=== PATIENT | female | born 1985 | race Caucasian/White ===

== ENCOUNTER 2017-04-25 17:33 | Emergency (ER) | payer OTHER ==
[2017-04-25 17:56] VITALS: BP 146/85; PULSE 74; TEMP 99.3; BMI 35.6
--- NOTE | 2017-04-25 18:55 | PDOC ---
History of Present Illness - General Chief Complaint: Back Pain Stated Complaint: RIGHT SIDE PAIN AND BURNING Time Seen by Provider: 04/25/17 18:24 History Source: Patient Exam Limitations: No Limitations - History of Present Illness Initial Comments: 04/25/17 18:51 31 yr female with right mid back pain for 2 weeks worse when standing at the sink doing dishes, feels a stabbing burning sensation. Pt admits to urianry burning no discharge, LMP 04/05/17 . no abd pain or diarrhea no fever or chills. No PMHX. no allergies. Occurred: reports: other (2 weeks ) Severity: reports: moderate Pain Location: reports: back (right mid back ) Loss of Consciousness: no loss of consciousness Past History - Past Medical History Allergies/Adverse Reactions: Allergies Allergy/AdvReac Type Severity Reaction Status Date / Time No Known Allergies Allergy Verified 04/25/17 17:55 Home Medications: Ambulatory Orders Cyclobenzaprine HCl [Flexeril -] 5 mg PO TID PRN #21 tablet 04/25/17 Naproxen [Naprosyn -] 500 mg PO BID #14 tablet 04/25/17 Asthma: No Cancer: No Cardiac Disorders: No Diabetes: No HTN: No Seizures: No Thyroid Disease: No - Reproductive History (#): 1 Para: 0 - Immunization History Immunization Up to Date: Yes - Suicide/Smoking/Psychosocial Hx Smoking History: Never smoked Have you smoked in the past 12 months: No Information on smoking cessation initiated: No Hx Alcohol Use: No Drug/Substance Use Hx: No Substance Use Type: None Hx Substance Use Treatment: No Trauma Specific PMHX - Complaint Specific PMHX Arthritis: No Back Injury: No Neck Injury: No Hx Sacro Iliac Joint Dysfunction: No Review of Systems - Review of Systems Able to Perform ROS?: Yes Is the patient limited [place] proficient: No Constitutional: No: Symptoms Reported HEENTM: No: Symptoms Reported Respiratory: No: Symptoms reported Cardiac (ROS): No: Symptoms Reported ABD/GI: No: Symptoms Reported, Other Musculoskeletal: Yes: See HPI, Back Pain (right mid back ) *Physical Exam - Vital Signs Last Vital Signs Temp Pulse Resp BP Pulse Ox 99.3 F 74 18 146/85 100 04/25/17 17:35 04/25/17 17:35 04/25/17 17:35 04/25/17 17:35 04/25/17 17:35 - Physical Exam General Appearance: Yes: Nourished, Appropriately Dressed HEENT: positive: EOMI, LUD[place], Normal ENT Inspection, TMs Normal, Pharynx Normal Neck: positive: Supple. negative: Tender Respiratory/Chest: positive: Lungs Clear, Normal Breath Sounds. negative: Chest Tender Cardiovascular: positive: Regular Rhythm, Regular Rate Gastrointestinal/Abdominal: positive: Normal Bowel Sounds, Soft. negative: Tender Musculoskeletal: positive: Normal Inspection, Muscle Spasm (right mid back no rash , no swelling mild tenderness to palpation, worse with deep breath). negative: CVA Tenderness, CVA Tenderness (R), CVA Tenderness (L), Decreased Range of Motion Medical Decision Making - Medical Decision Making 04/25/17 18:54 cc: 2 weeks back pain denies trauma no fever or chills no recent travel or surgery no PMHX will r/o UTI, kidney stone, muscle spasm pt is stable no hypoxia no evidence of tachycardia low grade fever. neg CVAT pt felt much better after the toradol injection. pt has FROM and feels better would like to go home strict follow up discussed with the patient. all questions asked and answered. 04/29/17 15:43 04/29/17 15:44 *DC/Admit/Observation/Transfer Diagnosis at time of Disposition: Muscle spasm - Discharge Dispostion Disposition: HOME Condition at time of disposition: Improved - Prescriptions Prescriptions: Cyclobenzaprine HCl [Flexeril -] 5 mg PO TID PRN #21 tablet PRN Reason: Muscle Spasms Naproxen [Naprosyn -] 500 mg PO BID #14 tablet - Referrals Referrals: Agustin Lawson MD [Staff Physician] - - Patient Instructions Additional Instructions: warm compresses to the area of pain every 2hrs for 20 minutes take the medication as prescribed follow with your doctor on Thursday if no improvement make sure you have a comfortable mattress to sleep on
[2017-04-25] MEDS ORDERED: KETOROLAC TROMETHAMINE 60 MG/2 ML VIAL IM ONE (19:11)
[2017-04-25] MEDS ORDERED: KETOROLAC TROMETHAMINE 60 MG/2 ML VIAL ONE (19:14)
[2017-04-25 20:03] LABS: URINE APPEARANCE CLOUDY; URINE BILIRUBIN NEGATIVE (NEGATIVE); URINE BLOOD NEGATIVE (NEGATIVE); URINE COLOR YELLOW; URINE GLUCOSE (UA) NEGATIVE (NEGATIVE); URINE KETONE NEGATIVE (NEGATIVE); URINE NITRITE NEGATIVE (NEGATIVE); URINE PROTEIN NEGATIVE (NEGATIVE); URINE UROBILINOGEN NEGATIVE mg/dL (0.2-1.0)
[2017-04-25 22:58] LABS: URINE LEUK ESTERASE 1+ (NEGATIVE)
== END 2017-04-25 20:34 | disposition home or self-care (01) ==
LOC: JERFT 17:33
PROC: 3E0333Z Introduction of Anti-inflammatory into Peripheral Vein, Percutaneous Approach (ICD-10-PCS; principal; 2017-04-25)
DX: M62.830 Muscle spasm of back (principal)
CPT/HCPCS: 81003; 81015; 84703; 99281-25

== ENCOUNTER 2021-12-15 08:11 | Emergency (ER) | payer OTHER ==
[2021-12-15 08:18] VITALS: BP 128/74; PULSE 66; TEMP 98.4; BMI 40.9
[2021-12-15] MEDS ORDERED: KETOROLAC TROMETHAMINE 30 MG/1 ML VIAL IM ONE (08:58)
[2021-12-15] MEDS ORDERED: KETOROLAC TROMETHAMINE 30 MG/1 ML VIAL ONE (08:59)
[2021-12-15] MEDS ORDERED: ERYTHROMYCIN 0.5% OPHTHALMIC OINTMENT 3.5 GM TUBE OS ONE (08:59)
[2021-12-15] MEDS ORDERED: ERYTHROMYCIN 0.5% OPHTHALMIC OINTMENT 3.5 GM TUBE ONE (09:10)
== END 2021-12-15 09:15 | disposition home or self-care (01) ==
LOC: JER 08:11
PROC: 3E0233Z Introduction of Anti-inflammatory into Muscle, Percutaneous Approach (ICD-10-PCS; principal; 2021-12-15)
DX: H00.015 Hordeolum externum left lower eyelid (principal)
CPT/HCPCS: 99284-25

== ENCOUNTER 2021-12-26 16:06 | Emergency (ER) | payer OTHER ==
[2021-12-26 16:44] VITALS: BP 152/80; PULSE 65; TEMP 98.5; BMI 40.7
[2021-12-26] MEDS ORDERED: ACETAMINOPHEN WITH CODEINE 300MG/30MG TABLET PO ONE (17:28)
[2021-12-26] MEDS ORDERED: ACETAMINOPHEN WITH CODEINE 300MG/30MG TABLET ONE (17:30)
== END 2021-12-26 18:24 | disposition home or self-care (01) ==
LOC: JER 16:06
DX: R05.9 Cough, unspecified (principal)
CPT/HCPCS: 71046-TC-FY; 99283-25

== ENCOUNTER 2022-11-28 11:52 | Emergency (ER) | payer OTHER ==
[2022-11-28 12:04] VITALS: BP 149/89; PULSE 92; RESP 18; TEMP 97.4; BMI 41.5
[2022-11-28] MEDS ORDERED: SODIUM CHLORIDE 0.9% 500 ML INFUS.BAG IV ONE (12:32)
[2022-11-28] MEDS ORDERED: ACETAMINOPHEN 1000 MG/100 ML BAG IVPB ONE (12:32)
[2022-11-28] MEDS ORDERED: ACETAMINOPHEN INJECTION 100 ML IVPB ONE (12:44)
[2022-11-28 13:09] LABS: BASO % 0.9 % (0-2.0); EOS % 19.8 % (0-4.5); HEMATOCRIT 38.3 % (32.4-45.2); HEMOGLOBIN 12.5 GM/dL (10.7-15.3); MCH 23.8 pg (25.7-33.7); MCHC 32.7 g/dl (32.0-36.0); MEAN CELL VOLUME 72.7 fl (80-96); MEAN PLT VOLUME 9.6 fl (7.5-11.1); MONO % 4.1 % (3.8-10.2); NEUT % 63.2 % (42.8-82.8); PLATELET COUNT 161 10^3/uL (134-434); RBC 5.27 M/mm3 (3.60-5.2); RDW 16.5 % (11.6-15.6); WHITE BLOOD COUNT 12.7 K/mm3 (4.0-10.0)
[2022-11-28 13:12] LABS: EPI CELLS >36 /uL (0-25.1); HCG,QUALITATIVE URINE Negative; HYALINE CASTS 21 /uL (0-3.1); PH,URINE 5.5 (5.0-8.0); URINE APPEARANCE CLOUDY; URINE BACTERIA 997 /uL (0-1359); URINE BILIRUBIN NEGATIVE (NEGATIVE); URINE COLOR YELLOW; URINE GLUCOSE (UA) NEGATIVE (NEGATIVE); URINE KETONE NEGATIVE (NEGATIVE); URINE LEUK ESTERASE 1+ (NEGATIVE); URINE NITRITE NEGATIVE (NEGATIVE); URINE PROTEIN NEGATIVE (NEGATIVE); URINE RBC 4 /uL (0-23.9); URINE UROBILINOGEN 0.2 mg/dL (0.2-1.0); URINE WBC 74 /uL (0-25.8)
[2022-11-28 13:45] LABS: POTASSIUM 4.2 mmol/L (3.5-5.1)
[2022-11-28 13:48] LABS: CALCIUM 9.2 mg/dL (8.5-10.1)
[2022-11-28 13:49] LABS: ALBUMIN 3.8 g/dl (3.4-5.0); BLOOD UREA NITROGEN 12.6 mg/dL (7-18)
[2022-11-28 13:52] LABS: CREATININE 0.7 mg/dL (0.55-1.3)
[2022-11-28 13:53] LABS: BILIRUBIN,TOTAL 0.4 mg/dL (0.2-1)
[2022-11-28 13:55] LABS: TOT PROT 7.2 g/dl (6.4-8.2)
== END 2022-11-28 16:54 | disposition home or self-care (01) ==
LOC: JER 11:52
PROC: 3E033NZ Introduction of Analgesics, Hypnotics, Sedatives into Peripheral Vein, Percutaneous Approach (ICD-10-PCS; principal; 2022-11-28)
DX: R19.7 Diarrhea, unspecified (principal); R51.9 Headache, unspecified; K52.9 Noninfective gastroenteritis and colitis, unspecified; D72.10 Eosinophilia, unspecified; R10.30 Lower abdominal pain, unspecified
CPT/HCPCS: 36415; 74177-TC; 80053; 81003; 83690; 84703; 85025; 87045; 87046; 87086; 87205; 99285-25; Q9967

== ENCOUNTER 2024-07-29 15:46 | Emergency (ER) | payer OTHER ==
[2024-07-29 15:56] VITALS: BP 124/79; PULSE 87; RESP 18; TEMP 98.3; BMI 43.2
[2024-07-29 17:52] LABS: PH,URINE 5.5 (5.0-8.0); URINE APPEARANCE CLEAR; URINE BILIRUBIN NEGATIVE (NEGATIVE); URINE COLOR YELLOW; URINE GLUCOSE (UA) NEGATIVE (NEGATIVE); URINE KETONE NEGATIVE (NEGATIVE); URINE LEUK ESTERASE NEGATIVE (NEGATIVE); URINE NITRITE NEGATIVE (NEGATIVE); URINE PROTEIN NEGATIVE (NEGATIVE); URINE UROBILINOGEN 0.2 mg/dL (0.2-1.0)
[2024-07-29 18:34] LABS: HCG,QUALITATIVE URINE Negative
[2024-07-29 18:39] LABS: EPI CELLS 42.9 /uL (0-25.1); HYALINE CASTS 0.27 /uL (0-3.1); URINE BACTERIA 1198.1 /uL (0-1359); URINE RBC 24.9 /uL (0-23.9); URINE WBC 26.8 /uL (0-25.8)
== END 2024-07-29 20:05 | disposition home or self-care (01) ==
LOC: JER 15:46
DX: N93.9 Abnormal uterine and vaginal bleeding, unspecified (principal); R31.9 Hematuria, unspecified
CPT/HCPCS: 81003; 84703; 87086; 99283-25